=== PATIENT | female | born 1960 | race African-American/Black ===

== ENCOUNTER 2017-08-20 07:08 | Emergency (ER) | payer OTHER ==
[2017-08-20 07:02] LABS: ADD MAN DIFF? NO
[2017-08-20] MEDS: MORPHINE SULFATE 4 MG/ML DISP.SYRIN. IV ×2 (07:06)
[2017-08-20 07:18] LABS: BASO % 0 % (0-3); EOS # 0.1 x10^3/uL (0.0-0.7); EOS % 3 % (0-3); HEMATOCRIT 38.3 % (36.0-47.0); HEMOGLOBIN 12.5 g/dL (12.0-15.5); LYMPH # 1.7 x10^3/uL (1.0-4.8); LYMPH % 35 % (24-48); MEAN CORPUSCULAR HEMOGLOBIN 29 pg (25-35); MEAN CORPUSCULAR HGB CONC 33 g/dL (31-37); MEAN CORPUSCULAR VOLUME 88 fL (79-100); MONO # 0.5 x10^3/uL (0.0-1.1); MONO % 11 % (0-9); NEUT # 2.5 x10^3uL (1.8-7.7); NEUT % 51 % (31-73); PLATELET COUNT 111 x10^3/uL (140-400); RED BLOOD COUNT 4.35 x10^6/uL (3.50-5.40); RED CELL DISTRIBUTION WIDTH 14.2 % (11.5-14.5); WHITE BLOOD COUNT 4.9 x10^3/uL (4.0-11.0)
[2017-08-20 07:20] LABS: AGAP ISTAT 15 mmol/L (6-14); ANION GAP 4 (6-14); BLOOD UREA NITROGEN 8 mg/dL (7-20); BUN ISTAT 5 mg/dL (8-26); BUN/CREATININE RATIO 10 (6-20); CALCIUM 8.9 mg/dL (8.5-10.1); CARBON DIOXIDE 29 mmol/L (21-32); CHLORIDE 103 mmol/L (98-107); CHLORIDE ISTAT 103 mmol/L (98-110); CREATININE 0.8 mg/dL (0.6-1.0); CREATININE ISTAT 0.8 mg/dL (0.5-1.4); GFR 88.8; GLUCOSE 94 mg/dL (70-99); GLUCOSE ISTAT 91 mg/dL (70-99); HEMATOCRIT ISTAT 36 % (36-40); HEMOGLOBIN ISTAT 12.2 g/dL (12-15); ION CA ISTAT 1.19 mmol/L (1.13-1.32); POTASSIUM 3.6 mmol/L (3.5-5.1); POTASSIUM ISTAT 3.6 mmol/L (3.5-5.0); SODIUM 136 mmol/L (136-145); SODIUM ISTAT 141 mmol/L (135-145); TOT CO2 ISTAT 27 mmol/L (23-32)
[2017-08-20 07:26] LABS: ALBUMIN 3.7 g/dL (3.4-5.0); ALBUMIN/GLOBULIN RATIO 1.3 (1.0-1.7); ALK PHOS 61 U/L (46-116); ALT (SGPT) 25 U/L (14-59); AST (SGOT) 25 U/L (15-37); TOTAL BILIRUBIN 0.4 mg/dL (0.2-1.0); TOTAL PROTEIN 6.6 g/dL (6.4-8.2)
[2017-08-20] MEDS: IOHEXOL 300 MG/ML 100ML VIAL. IV ×2 (07:36)
[2017-08-20] MEDS ORDERED: CONTRAST GIVEN MC ×2 (07:45)
[2017-08-20 08:33] LABS: BILIRUBIN,URINE NEGATIVE (NEG); CLARITY,URINE CLEAR; COLOR,URINE YELLOW; GLUCOSE,URINE NEGATIVE (NEG); NITRITE,URINE NEGATIVE (NEG); PH,URINE 7.5; PROTEIN,URINE NEGATIVE (NEG-TRACE); UROBILINOGEN,URINE 0.2 mg/dL (0.2 mg/dL)
[2017-08-20 08:44] LABS: BACTERIA,URINE 0 /HPF (0-FEW); RBC,URINE 0 /HPF (0-2); SQUAMOUS EPITHELIAL CELL,UR FEW /LPF; WBC,URINE OCC /HPF (0-4)
== END 2017-08-20 08:49 | disposition home or self-care (01) ==
LOC: ER 07:08
DX: S20.211A Contusion of right front wall of thorax, initial encounter (principal); V89.2XXA Person injured in unspecified motor-vehicle accident, traffic, initial encounter; Y93.89 Activity, other specified; Y99.8 Other external cause status; Y92.488 Other paved roadways as the place of occurrence of the external cause
CPT/HCPCS: 36415; 71045; 71260; 74177; 80047; 80053; 81001; 85025; 87086; 93005; 96374; 99285-25; J2270; Q9967